=== PATIENT | female | born 1965 | race Caucasian/White ===

== ENCOUNTER 2019-11-24 16:14 | Outpatient (CLI) | payer OTHER, SELFPAY ==
--- NOTE | ~2019-11-24 | MM_ITS ---
EXAMINATION: MM screening [facility] BI w clifford HISTORY: Screening TECHNIQUE: Craniocaudal and mediolateral oblique 3-D tomosynthesis images were obtained and synthetic 2-D images were generated. CAD analysis was submitted and interpreted. COMPARISON: Comparison to multiple prior studies sequentially, with oldest reviewed study dated 06/22. BREAST PARENCHYMAL COMPOSITION: There are scattered areas of fibroglandular density. FINDINGS: There is no evidence of suspicious mass, calcification, or architectural distortion to sugg est malignancy in either breast. There has been no suspicious interval change. IMPRESSION: 1. No mammographic evidence of malignancy. 2. Recommend routine screening mammography in one year. BI-RADS Category 1: Negative Reviewed, dictated and finalized at location A.
== END 2019-11-24 16:15 | disposition home or self-care (01) ==
LOC: ANHIMG 16:19
PROVIDERS: PCP Internal Medicine; Visit Provider Internal Medicine
DX: Z12.31 Encounter for screening mammogram for malignant neoplasm of breast (principal)
CPT/HCPCS: 77063; 77067

== ENCOUNTER 2021-02-08 14:55 | Outpatient (CLI) | payer OTHER, SELFPAY ==
--- NOTE | ~2021-02-08 | MM_ITS ---
EXAMINATION: MM screening [facility] BI w clifford HISTORY: Screening mammogram TECHNIQUE: Craniocaudal and mediolateral oblique 3-D tomosynthesis images were obtained and synthetic 2-D images were generated. CAD analysis was submitted and interpreted. COMPARISON: 11/24/2019, 03/13/2018, 02/08/2017 bilateral screening mammogram examinations BREAST PARENCHYMAL COMPOSITION: There are scattered areas of fibroglandular density. FINDINGS: There are scattered bilateral benign calcifications Stable probable 4 x 7.5 mm benign intramammary lymph node in the inner aspect of the upper outer righ t breast. There is no evidence of suspicious mass, calcification, or architectural distortion to sugg est malignancy in either breast. There has been no suspicious interval change. IMPRESSION: 1. No mammographic evidence of malignancy. 2. Recommend routine screening mammography in one year. BI-RADS Category 2: Benign finding(s). Reviewed, dictated and finalized at location A. INUITY CLERK
== END 2021-02-08 14:56 | disposition home or self-care (01) ==
LOC: ANHIMG 14:58
PROVIDERS: PCP Internal Medicine; Visit Provider Internal Medicine
DX: Z12.31 Encounter for screening mammogram for malignant neoplasm of breast (principal)
CPT/HCPCS: 77063; 77067

== ENCOUNTER 2021-10-12 12:48 | Outpatient (CLI) | payer OTHER, SELFPAY ==
[2021-10-12 13:40] LABS: Albumin Level 4.5 g/dL (3.5-5.1)
[2021-10-12 13:43] LABS: Iron 87 ug/dL (37-170)
[2021-10-12 13:50] LABS: Prealbumin 28.9 mg/dL (17.6-36.0)
== END 2021-10-12 12:49 | disposition home or self-care (01) ==
PROVIDERS: PCP Internal Medicine; Visit Provider Surgery Plastic and Reconstructive Surgery
DX: Z98.84 Bariatric surgery status (principal)
CPT/HCPCS: 36415; 82040; 83540; 84134

== ENCOUNTER 2021-11-10 12:27 | Outpatient (CLI) | payer OTHER, SELFPAY ==
--- NOTE | 2021-11-10 12:43 | ECG_ITS ---
Measurements Intervals [place] Rate: 65 P: 30 KS: 157 QRS: 0 QRSD: 98 T: 14 QT: 392 QTc: 408 Interpretive Statements SINUS RHYTHM LOW QRS VOLTAGE IN PRECORDIAL LEADS [QRS DEFLECTION < 1.0 mV IN CHEST LEADS] NO PREVIOUS ECG AVAILABLE FOR COMPARISON Electronically Signed On 11-11-2021 13:21:00 CDT by Corrina Mir M.D.
[2021-11-10 13:15] LABS: Hematocrit 44.4 % (37.0-47.0); Hemoglobin 14.4 g/dL (12.0-15.0)
[2021-11-18 13:15] LABS: Vitamin B1 14 nmol/L (8-30)
== END 2021-11-10 12:28 | disposition home or self-care (01) ==
LOC: ANHSURGERY 12:33
PROVIDERS: Anesthesiology; PCP Internal Medicine; Visit Provider Surgery Plastic and Reconstructive Surgery
DX: Z01.818 Encounter for other preprocedural examination (principal); L57.4 Cutis laxa senilis; D64.9 Anemia, unspecified; Z98.84 Bariatric surgery status
CPT/HCPCS: 36415; 84425; 85014; 85018; 93005

== ENCOUNTER 2021-11-16 00:32 | Day surgery (SDC) | payer OTHER, SELFPAY ==
[2021-11-09 15:19] VITALS: BMI 30.4
--- NOTE | 2021-11-09 15:27 | PC.NURSE ---
Addendum entered by China Sinha RN 11/10/21 07:22: MAY TAKE SERTRALINE MORNING OF SURGERY WITH A SMALL SIP OF WATER. Original Note: Report to the Outpatient Waiting Room, entrance under the [facility] located off [facility], at time _0600_ on date _[id number]_. OR Time: 0730_. - You and your visitor will be asked to self-screen and do not enter if you have any COVID symptoms. - Only one visitor and NO children visitors are allowed at this time. - The patient visitor is requested to leave or wait in car when not with patient due to restrictions. - A mask is required within the hospital. Patients may have clear liquids (water, carbonated beverages, clear teas, apple juice) until 3 hours prior to surgery with a maximum of 20 ounces. - No food from midnight until time of surgery Take the following medications with a SIP of water the morning of surgery: ____None Medications to discontinue per physician Vitamin d3, Iron and THC gummies Date to take last ydfy___[id number] Please no make-up, nail nicaraguan, hairspray, perfume, deodorant, or body powder the day of surgery. No jewelry (including any body piercings) or valuables the day of surgery, leave them at home. Please take a shower or bath the night before, or the morning of, surgery with an antibacterial soap. Wear comfortable, loose fitting clothing. - Jewelry must be removed prior to entering the operating room. Rings and piercings that are not removed may be cut off. - The hospital will not accept responsibility for valuables. - Please leave all valuables, including medications, at home the day of surgery. If you are going home after surgery, a licensed vending route driver must drive you home. - NO public transportation without another adult. - We recommend that an adult stay with you for 24 hours following discharge. - We also recommend that you do not drive, make important decision, drink alcoholic beverages, or take any drugs that were not prescribed by your health care provider for at least 24 hours after your discharge time. Follow any additional instructions given to you from your surgeon. If you or anyone in your household have experienced Covid symptoms in the past week, please notify your surgeon or the nurse liaison at the phone number below for possible testing. Telephone instructions given to _Patient__and asked if any additional questions and then verbalized understanding. Patient advised to call surgeon office or pre surgery nurse liaison [phone] if any additional questions.
--- NOTE | 2021-11-15 12:56 | WPDANESEPPF ---
Anes - Initial Pre Proc Eval Procedure: Operation Date: 11/16/21 07:30 Proposed Procedures p Bilateral Breast Mastopexy with GalaFlex, - Jason Bah MD s Abdominoplasty with Abdominal Liposuction - Jason Bah MD Date/Time: 11/15/21 12:56 Surgeon: Jason Bah MD Pre Op Diagnosis: skin laxity, breast ptosis Patient Data Age: 56 Gender: F Height: 1.68 m Weight: 85.5 kg Allergies Allergy/AdvReac Type Severity Reaction Status Date / Time nut - unspecified Allergy Severe PASSED Verified 11/16/21 06:41 OUT, AMBULANCE TO HOSP SWELLING, HIVES Penicillins Allergy Unknown Unknown Verified 11/16/21 06:41 Home Medications Medication Instructions Recorded Confirmed Type epinephrine 0.3 mg/0.3 mL 0.3 mg (0.3 mL) IM ONCE #1 ea 01/05/20 11/09/21 Rx injection, auto-injector (EpiPen 2-Tucker) ferrous sulfate 325 mg (65 mg 325 mg PO DAILY 01/05/20 11/16/21 History iron) tablet sertraline 100 mg tablet See Rx Instructions .Route 10/30/21 11/09/21 Rx .COMPLEX #90 tabs sertraline 25 mg tablet See Rx Instructions .Route 10/30/21 11/09/21 Rx .COMPLEX #90 tabs ondansetron 4 mg disintegrating 4 mg PO Q8H #21 tabs 11/03/21 Rx tablet carisoprodol 350 mg tablet (Soma) 350 mg PO TID PRN muscle pain #21 11/06/21 11/06/21 Rx tabs diazepam 5 mg tablet (Valium) 5 mg PO TID PRN anxiety #7 tabs 11/06/21 11/06/21 Rx oxycodone-acetaminophen 5 mg-325 1 tablet PO Q6H PRN pain #30 tabs 11/06/21 11/06/21 Rx mg tablet (Percocet) cholecalciferol (vitamin D3) 25 25 mcg PO DAILY 11/09/21 11/16/21 History mcg (1,000 unit) capsule (Vitamin D3) Patient hx anesthesia problems: none and other (slow to awake) Family hx anesthesia problems: none Results Review: All pre-operative results and documents have been reviewed as part of the pre-operative evaluation. [facility] Past Medical History Medical History Acne Anemia Chronic fatigue Depression Hypertriglyceridemia Surgical History Surgical History Delivery by section H/O gastric bypass History of cholecystectomy History of partial hysterectomy Family History Family History Father Diabetes mellitus Lymphoma Mother Acute myeloid leukemia Social History Social History Smoking status: Never smoker Alcohol intake: current Drinks per week: 6 Alcohol use details: once weekly Substance use: current Substance use type: does not use Other substance usage details: THC gummies to help sleep. Living arrangements: with family Spiritual care concerns: No Anes - Eval Final PreProcedure Day of Procedure 11/15/21 12:56 Patient weight: normal Heart: regular rate and rhythm Lungs: clear to auscultation Airway: Mallampati scale class II Neurological: alert and oriented Last oral intake: >/= 8 hours ASA classification: II Emergent: no Anesthetic plan: proceed Anesthesia type and monitoring: general ETT and standard monitoring Results Review: All pre-operative results and documents have been reviewed as part of the pre-operative evaluation. Informed Consent: The patient's anesthetic plan and its attendant risks and benefits were discussed with the patient/family/POA. Questions were solicited and answers provided to the satisfaction of the patient/family/POA.
[2021-11-16] VITALS (10 sets, daily range): BP systolic 99–149; BP diastolic 51–85; PULSE 59–96; RESP 12–20; TEMP 36.4–37.1; O2SAT 93–100; BMI 28.8
--- NOTE | 2021-11-16 06:28 | W.PM.PROC2 ---
Procedure Note - Detailed Date of Procedure 11/16/21 Pre-op Diagnosis skin laxity, breast ptosis Post-op Diagnosis Same Procedure Performed 1. Bilateral mastopexy with Galaflex. 2. Progressive tension abdominoplasty with suction lipectomy Surgeon Jason Bah MD Anesthesia General Findings Breast Inverted T Superior medial pedicle Galaflex REF# [id number] Lot [id number] Exp 04/24/2024 Abdomen Tissue removed 2062 grams Lipoaspirate 3,000 cc Description of Procedure She is here today for the above. Previously and again today the risks, benefits, alternatives were discussed in extensive detail. I wanted them to be very realistic about the risks involved as well as expectations. We discussed aftercare and what to monitor for. I was very upfront about the risks of wound breakdown leading to loss of skin, open wounds, and need for additional procedures with permanent abdominal deformity. We discussed DVT/PE risks and management. Made sure answered all of their questions to their satisfaction today and consent was obtained. Marked in the preoperative holding area with their verification. The patient was taken to the operating room placed supine on the operating table. Anesthesia was provided by anesthesiology. A Sierra catheter was started. Prepped and draped in a 360 degree standard sterile fashion. Breast A surgical time-out was taken. Stab incision was made and small volume of tumescent was utilized. I tailor tacked the breast into position. Placed her in a sitting position. Verified the nipple-areolar location based on preoperative planning as well as intraoperative observations and measurements in full agreement. This was marked at 42mm in size She was placed supine. I marked the NAC at 42 mm and de-epithelialized the pedicle. The inferior breast was de-epithelized to create an auto augmentation flap which was sutured into place with 2-0 PDS. Galaflex was placed and trimmed after soaking in betadine solution. Sutured into place with 2-0 Vicryl. I closed along the IMF with 2-0 Stratafix. Along the vertical with 2-0 PDS. I closed around the areola with 3-0 strata fix. 3-0 Monocryl along the vertical. 3-0 Stratafix along the IMF. I finally closed everything with running subcuticular 4-0 Monocryl and tissue glue. Abdomen I placed the patient in a flexed position to verify the upper and lower markings would reach. I then placed supine. A thorough abdominal examination was completed. Stab incisions were made and tumescent solution infiltrated. A 5mm liposuction basket cannula was utilized to provide suction lipectomy based on S.A.F.E. technique. This was in multiple planes and passes. Patient was turned into the lateral decubitus position with care taken to protect from injury during these turns in order to optimize contour. She was returned to supine. A 10 blade was used to make the upper incision. I continued dissection down to the level of fascia. Elevated just what was necessary for repair of the diastasis. I then again flexed the bed to verify the upper skin flap would reach the lower markings without tension. Once verified I placed her supine once again and a 10 blade used to make the lower incision. I elevated up to level the umbilicus and left the umbilicus intact on a well-vascularized stalk. The intervening tissue was removed. A 2 mm blunt cannula with 0.5% bupivicaine was injected deep to the fascia bilaterally. I plicated the diastasis recti using 0 PDO stratafix barbed suture. This was in 2 separate layers using 2 separate sutures as well. I repaired around the umbilicus leaving plenty of room for well-vascularized stalk of the umbilicus with 2-0 PDS. I also repaired lateral to the rectus using two layers of 0 PDO stratafix. The patient was flexed and starting from superior to inferior began plication using 2-0 Vicryl to obliterate all space in a standard progressive tension fashion. At the
[2021-11-16 06:47] LABS: Urine Cotinine NEGATIVE
[2021-11-16] MEDS: LACTATED RINGERS 1,000 ML 30 ML IV CONT ×2 (06:50→14:02)
--- NOTE | 2021-11-16 07:22 | WPDHPUPDATE1 ---
History and Physical Update Update Date/Time: 11/16/21 07:22 History and Physical has been reviewed, including an updated exam of the patient. There are NO changes in the patient's condition. Risks, benefits, and alternatives have been discussed and questions answered. Patient agrees to proceed with procedure.
[2021-11-16] MEDS: TRANEXAMIC ACID 1,000MG/ISO100 1,000 MG/100 ML BAG 200 MG IVPB (07:32)
[2021-11-16] MEDS: ceFAZolin 2 GM/D5W 50 ML 2 GM/50 ML BAG IVPB (07:32)
[2021-11-16] MEDS: BUPIVACAINE HCL 0.25% PF 30 ML VIAL INFILTRATE (08:34)
[2021-11-16] MEDS: NACL 0.9% IRRIG POUR BOTTLE 900 ML, GENTAMICIN SULFATE INJ 160 MG, CLINDAMYCIN PHOS INJ... IRRIGATION (08:35)
[2021-11-16] MEDS: LACTATED RINGERS IRRIG 1,000 ML, LIDOCAINE HCL 1% LOCAL INJ 50 ML, EPINEPHrine HCL INJ ... INFILTRATE ×4 (08:39→11:19)
[2021-11-16] MEDS: fentaNYL CITRATE INJ (*CRX) 100 MCG/2 ML VIAL 25 MCG IV PUSH ×2 (14:45→15:01)
[2021-11-16] MEDS: ONDANSETRON INJ 4 MG/2 ML VIAL IV PUSH (15:44)
[2021-11-16] MEDS: LACTATED RINGERS 1,000 ML 125 ML IV CONT (15:44)
[2021-11-16] MEDS: MORPHINE SULFATE (*CRX) 2 MG/ML INJ IV PUSH (15:45)
[2021-11-16] MEDS: carisoprodoL (*CRX) 350 MG TABLET PO ×2 (16:45→22:46)
[2021-11-16] MEDS: oxyCODONE/ACETAMINOPHEN (*CRX) 5-325 MG TABLET PO ×2 (17:44→23:29)
[2021-11-16] MEDS: ENOXAPARIN 40 MG/0.4 ML SYRINGE SUB-Q (20:17)
[2021-11-17] MEDS: oxyCODONE/ACETAMINOPHEN (*CRX) 5-325 MG TABLET PO (05:19)
[2021-11-17] MEDS: carisoprodoL (*CRX) 350 MG TABLET PO ×3 (05:19→17:19)
--- NOTE | 2021-11-17 07:24 | WPDPN ---
Progress Note: A&P Assessment and Plan (1) Breast ptosis: Code(s): N64.81 - Ptosis of breast Status: Acute Assessment and Plan: She is doing very well after bilateral mastopexy with galaflex, progressive tension abdominoplasty and suction lipectomy. Will discharge home. Today we had a lengthy discussion about the care. What monitor for. Activity limitations. This was a lengthy open-ended conversation making sure to sure we answered all her questions. We will plan to discharge home when she is ambulating, pain controlled, tolerating diet. Call with any questions or concerns. (2) Skin laxity: Code(s): L57.4 - Cutis laxa senilis Status: Acute (3) History of weight loss surgery: Code(s): Z98.84 - Bariatric surgery status Status: Acute (4) Exposure to phentermine: Code(s): T50.5X5A - Adverse effect of appetite depressants, initial encounter Status: Acute Assessment and Plan: No phentermine use. Subjective Date/time seen: 11/17/21 07:24 Interval history: She has done well overnight. Pain moderate control. No fevers or chills. No nausea vomiting. No shortness of breath. No chest pain. No calf tenderness. She says she was doing better with 1 pain pill every 3 hours and would like to switch to the. Review of Systems Review of Systems: All systems reviewed & are unremarkable except as noted in HPI and below Exam Narrative: Alert and oriented no obvious distress Respiratory on labored Bilateral breasts are soft. No signs of infection. No hematoma. No seroma. Good color and capillary refill. Abdomen is healing well. No signs of infection. No hematoma. No seroma. Good color and capillary refill. No calf tenderness. Negative Homans. Objective Data Vital Signs Vital Signs: Vital Signs - 24 hr 11/16/21 14:02 11/16/21 14:15 11/16/21 14:30 Temperature 36.6 C Pulse Rate 96 96 88 Respiratory Rate 18 16 18 Blood Pressure 149/80 H 146/84 H 127/74 Pulse Oximetry 100 100 100 Oxygen Delivery Simple Face Mask Simple Face Mask Simple Face Mask Oxygen Flow Rate 6 6 6 11/16/21 14:37 11/16/21 14:45 11/16/21 15:00 Temperature Pulse Rate 96 85 Respiratory Rate 16 12 Blood Pressure 129/76 136/79 Pulse Oximetry 93 95 Oxygen Delivery Room Air Room Air Room Air Oxygen Flow Rate 11/16/21 15:15 11/16/21 15:20 11/16/21 15:20 Temperature 36.6 C Pulse Rate 94 74 74 Respiratory Rate 12 16 16 Blood Pressure 132/79 130/85 Pulse Oximetry 98 97 97 Oxygen Delivery Room Air Room Air Oxygen Flow Rate 11/16/21 20:30 11/16/21 20:30 11/16/21 23:46 Temperature 36.4 C 37.0 C Pulse Rate 78 78 60 Respiratory Rate 18 18 20 Blood Pressure 106/57 L 99/51 L Pulse Oximetry 100 100 99 Oxygen Delivery Room Air Oxygen Flow Rate 11/16/21 23:30 Temperature Pulse Rate Respiratory Rate Blood Pressure Pulse Oximetry Oxygen Delivery Room Air Oxygen Flow Rate Intake/Output Intake/Output: Intake & Output 11/14/21 11/15/21 11/16/21 11/17/21 23:59 23:59 23:59 23:59 Intake Total 550 Output Total 800 Balance -250 Meds/Results Medications: Active Medications Generic Name Dose Route Start Last Admin Trade Name Freq PRN Reason Stop Dose Admin Carisoprodol 350 mg 11/16/21 18:00 11/17/21 05:19 Carisoprodol (*Crx) 350 Mg Tablet PO 350 mg Q6HR ROZINA Administration Diazepam 5 mg 11/16/21 13:39 Diazepam (*Crx) 5 Mg Tablet PO TID PRN Anxiety Enoxaparin Sodium 40 mg 11/16/21 20:00 11/16/21 20:17 Enoxaparin 40 Mg/0.4 Ml Syringe SUB-Q 40 mg DAILY@2000 ROZINA Administration Lactated Ringer's 1,000 mls @ 125 mls/hr 11/16/21 13:40 11/16/21 22:05 Lr - Lactated Ringers Iv IV CONT 0 mls/hr .Q8H ROZINA Infusion Morphine Sulfate 2 mg 11/16/21 13:39 11/16/21 15:45 Morphine Sulfate (*Crx) 2 Mg/Ml Inj IV PUSH 2 mg Q2H PRN Administration Pain Ond
--- NOTE | 2021-11-17 07:31 | PM.DS ---
DS: Admitting Diagnosis Discharge Date 11/17/2021 Admitting Diagnosis Skin laxity, breast ptosis DS: Discharge Diagnosis Discharge Diagnosis (1) Skin laxity: Code(s): L57.4 - Cutis laxa senilis Status: Acute (2) Breast ptosis: Code(s): N64.81 - Ptosis of breast Status: Acute (3) History of weight loss surgery: Code(s): Z98.84 - Bariatric surgery status Status: Acute (4) Exposure to phentermine: Code(s): T50.5X5A - Adverse effect of appetite depressants, initial encounter Status: Acute DS: Summary Hospital Course Hospital Course: She underwent bilateral mastopexy with GalaFLEX, progressive tension abdominoplasty with suction lipectomy. Postoperatively has done well. Will plan for discharge home. Time Spent with Patient Time attestation: Total time spent providing and/or coordinating discharge services: Exam Narrative: Alert and oriented no obvious distress Respiratory on labored Bilateral breasts are soft. No signs of infection. No hematoma. No seroma. Good color and capillary refill. Abdomen is healing well. No signs of infection. No hematoma. No seroma. Good color and capillary refill. No calf tenderness. Negative Homans. Discharge Plan Discharge Patient Disposition: Home, Self-Care Discharge Instructions: POST OPERATIVE DISCHARGE INSTRUCTIONS JASON BAH M.D. [facility] [address] [place] [address] [address] for 24 hours after anesthesia and while you are taking pain medication. Take all prescribed medication as directed Diet as tolerated. No lifting or activity that raises blood pressure for 48 hours. Regular walking / ambulation. May shower 24 hours after surgery. Once you shower do not take pain medication before showering as the combination of medication and heat may cause you to feel dizzy or pass out. No pools or tubs for 2 weeks. Slowly stand up straight as tolerated. No straining or lifting more than 20 pounds. Call with any questions or concerns. Dressing Care: Continue abdominal binder / foam 23 hours per day. If you have any questions or concerns, please call the office . If it is after hours you will be directed to the clearing distribution clerk exchange. Shortness of breath, chest pain, or other medical emergency dial 911 / proceed to the Emergency Room. Follow-up/Referrals: Jason Bah MD [Physician] - 1 Week Discharge Medications: Continued ondansetron 4 mg tablet,disintegrating 4 mg PO Q8H Qty: 21 0RF oxycodone-acetaminophen [Percocet] 5-325 mg tablet 1 tablet PO Q6H PRN (Reason: pain) Qty: 30 0RF diazepam [Valium] 5 mg tablet 5 mg PO TID PRN (Reason: anxiety) Qty: 7 0RF carisoprodol [Soma] 350 mg tablet 350 mg PO TID PRN (Reason: muscle pain) Qty: 21 0RF ferrous sulfate 325 mg (65 mg iron) tablet 325 mg PO DAILY epinephrine [EpiPen 2-Tucker] 0.3 mg/0.3 mL auto-injector 0.3 mg IM ONCE Qty: 1 2RF Rx Instructions: as a single dose; may repeat once cholecalciferol (vitamin D3) [Vitamin D3] 25 mcg (1,000 unit) Capsule 25 mcg PO DAILY sertraline 100 mg tablet See Rx Instructions .ROUTE .COMPLEX Qty: 90 0RF Dose Instruction: TAKE 1 TABLET BY MOUTH DAILY Rx Instructions: TAKE 1 TABLET BY MOUTH DAILY sertraline 25 mg tablet See Rx Instructions .ROUTE .COMPLEX Qty: 90 0RF Dose Instruction: TAKE 1 TABLET BY MOUTH DAILY Rx Instructions: TAKE 1 TABLET BY MOUTH DAILY enoxaparin [Lovenox] 40 mg/0.4 mL syringe 40 mg subcut DAILY Qty: 4 0RF
--- NOTE | 2021-11-17 08:04 | WPDANESPN ---
Anes - Prog Note Post-Op Date/Time: 11/17/21 08:04 Cardiovascular status: normal Respiratory status: normal Airway patency: baseline Mental status: baseline Post-Op hydration status: normal Vital Signs: Last Vital Signs Temp 37.0 C 11/16/21 23:46 Pulse 60 11/16/21 23:46 Resp 20 11/16/21 23:46 BP 99/51 L 11/16/21 23:46 Pulse Ox 99 11/16/21 23:46 O2 Del Method Room Air 11/16/21 23:30 O2 Flow Rate 6 11/16/21 14:30 Pain Score (VAS): 3/10 I/O: Intake & Output 11/16/21 11/17/21 11/17/21 23:59 07:59 15:59 Intake Total 500 Output Total 600 Balance -100 Post-procedural complaints: none Patient Feedback: Patient satisfied with anesthetic care. Other Findings: Burning Pain across abdomen
[2021-11-17] MEDS: oxyCODONE/ACETAMINOPHEN (*CRX) 5-325 MG TABLET 1 TABLET PO ×4 (08:11→17:19)
[2021-11-17 08:35] VITALS: BP 89/47; PULSE 64; RESP 16; TEMP 37; O2SAT 99
== END 2021-11-17 18:35 | disposition home or self-care (01) ==
LOC: ANHSURGERY 06:12 → ANHOB2 15:04
PROVIDERS: PCP Internal Medicine; Visit Provider Surgery Plastic and Reconstructive Surgery
PROC: (CPT 19316; principal; 2021-11-16 07:30)
PROC: (CPT 19316; 2021-11-16 07:30)
DX: N64.81 Ptosis of breast (principal); L57.4 Cutis laxa senilis; Z98.84 Bariatric surgery status; T50.5X5A Adverse effect of appetite depressants, initial encounter; R53.82 Chronic fatigue, unspecified; E78.1 Pure hyperglyceridemia; D64.9 Anemia, unspecified
CPT/HCPCS: 19316; 15877; 15847; 80307; 99199; A9270; J0131; J0171; J0330; J0690; J1100; J1170; J1580; J1650; J2250; J2270; J2405; J2704; J2710; J3010; J7120

== ENCOUNTER 2023-04-24 15:16 | Outpatient (CLI) | payer OTHER, SELFPAY ==
--- NOTE | ~2023-04-24 | MM_ITS ---
EXAMINATION: MM screening [facility] BI w clifford HISTORY: Screening TECHNIQUE: Craniocaudal and mediolateral oblique 3-D tomosynthesis images were obtained and synthetic 2-D images were generated. CAD analysis was submitted and interpreted. COMPARISON: Comparison to multiple prior studies sequentially, with oldest reviewed study dated 07/09. BREAST PARENCHYMAL COMPOSITION: Not dense: There are scattered areas of fibroglandular density. FINDINGS: There is no evidence of suspicious mass, calcification, or architectural distortion to sugg est malignancy in either breast. There has been no suspicious interval change. IMPRESSION: 1. No mammographic evidence of malignancy. 2. Recommend routine screening mammography in one year. BI-RADS Category 1: Negative Reviewed, dictated and finalized at location A. COATER
== END 2023-04-24 15:17 | disposition home or self-care (01) ==
LOC: ANHIMG 15:20
PROVIDERS: PCP Internal Medicine; Visit Provider Internal Medicine
DX: Z12.31 Encounter for screening mammogram for malignant neoplasm of breast (principal)
CPT/HCPCS: 77063; 77067

== ENCOUNTER 2023-11-05 01:51 | Day surgery (SDC) | payer OTHER, SELFPAY ==
[2023-10-16 11:26] VITALS: BMI 29.2
[2023-11-05 07:30] VITALS: BP 134/87; PULSE 62; RESP 16; TEMP 36.1; O2SAT 99; BMI 29.9
--- NOTE | 2023-11-05 07:34 | WPDANESEPPF ---
Anes - Initial Pre Proc Eval Procedure: Operation Date: 11/05/23 08:30 Proposed Procedures p Colonoscopy - Iván Whaley MD Date/Time: 11/05/23 07:34 Surgeon: Iván Whaley MD Pre Op Diagnosis: Personal history colon polyps Patient Data Age: 58 Gender: F Height: 1.68 m Weight: 82 kg Allergies Allergy/AdvReac Type Severity Reaction Status Date / Time nut - unspecified Allergy Severe PASSED Verified 11/05/23 07:28 OUT, AMBULANCE TO HOSP SWELLING, HIVES Penicillins Allergy Unknown Unknown Verified 11/05/23 07:28 Home Medications Medication Instructions Recorded Confirmed Type ferrous sulfate 325 mg (65 mg 325 mg PO DAILY 01/05/20 11/05/23 History iron) tablet mecobalamin (vitamin B12) 1 tablet PO DAILY 03/11/23 11/05/23 History epinephrine 0.3 mg/0.3 mL 0.3 mg (0.3 mL) IM ONCE #1 ea 03/27/23 11/05/23 Rx injection, auto-injector (EpiPen 2-Tucker) sertraline 100 mg tablet See Rx Instructions .Route 06/04/23 11/05/23 Rx .COMPLEX #90 tabs Patient hx anesthesia problems: none Family hx anesthesia problems: none Results Review: All pre-operative results and documents have been reviewed as part of the pre-operative evaluation. [facility] Past Medical History Medical History Acne Anemia Chronic fatigue Depression Hypertriglyceridemia Surgical History Surgical History Delivery by section H/O gastric bypass History of cholecystectomy History of partial hysterectomy Family History Family History Father Diabetes mellitus Lymphoma Mother Acute myeloid leukemia Social History Social History Smoking status: Never smoker Alcohol intake: current Drinks per week: 6 Alcohol use details: Socially Substance use: current Substance use type: does not use Other substance usage details: THC gummies to help sleep. Lack of Transportation: No Lack of Food: Never True Current Housing: I Have Housing Concerned About Future Housing: No Difficulty Paying Gas/Electric Bills: No Difficulty Paying for Meds: No Currently Unemployed: No Education: High School Diploma/GED Difficulty w/ Childcare or Family Care: No Living arrangements: other Spiritual care concerns: No Anes - Eval Final PreProcedure Day of Procedure 11/05/23 07:34 Patient weight: overweight Heart: regular rate and rhythm Lungs: clear to auscultation Airway: Mallampati scale class II Neurological: alert and oriented Last oral intake: >/= 8 hours ASA classification: II Emergent: no Anesthetic plan: proceed Anesthesia type and monitoring: general GIVS and standard monitoring Results Review: All pre-operative results and documents have been reviewed as part of the pre-operative evaluation. Hx of polyps in the past. Pt recently travelled in [facility], lots of walking, no cp or sob. Informed Consent: The patient's anesthetic plan and its attendant risks and benefits were discussed with the patient/family/POA. Questions were solicited and answers provided to the satisfaction of the patient/family/POA.
[2023-11-05] MEDS: LACTATED RINGERS 1,000 ML 150 ML IV CONT (07:47)
--- NOTE | 2023-11-05 08:39 | PM.HPGS ---
History of Present Illness History of Present Illness Consent: Risks, benefits, and alternatives have been discussed and questions answered. Patient agrees to proceed with procedure. Chief complaint: Personal history colon polyps Narrative: Katarina Hdz is a 58 year old female with colon polyp in 2019 Review of Systems Review of Systems: All systems reviewed & are unremarkable except as noted in HPI and below PMFSH Past Medical History Medical History Acne Anemia Chronic fatigue Depression Hypertriglyceridemia Surgical History Surgical History Delivery by section H/O gastric bypass History of cholecystectomy History of partial hysterectomy Family History Family History Father Diabetes mellitus Lymphoma Mother Acute myeloid leukemia Social History Social History Smoking status: Never smoker Alcohol intake: current Drinks per week: 6 Alcohol use details: Socially Substance use: current Substance use type: does not use Other substance usage details: THC gummies to help sleep. Lack of Transportation: No Lack of Food: Never True Current Housing: I Have Housing Concerned About Future Housing: No Difficulty Paying Gas/Electric Bills: No Difficulty Paying for Meds: No Currently Unemployed: No Education: High School Diploma/GED Difficulty w/ Childcare or Family Care: No Living arrangements: other Spiritual care concerns: No Meds Home Medications and Allergies Home Medications Medication Instructions Recorded Confirmed Type ferrous sulfate 325 mg (65 mg 325 mg PO DAILY 01/05/20 11/05/23 History iron) tablet mecobalamin (vitamin B12) 1 tablet PO DAILY 03/11/23 11/05/23 History epinephrine 0.3 mg/0.3 mL 0.3 mg (0.3 mL) IM ONCE #1 ea 03/27/23 11/05/23 Rx injection, auto-injector (EpiPen 2-Tucker) sertraline 100 mg tablet See Rx Instructions .Route 06/04/23 11/05/23 Rx .COMPLEX #90 tabs Allergies Allergy/AdvReac Type Severity Reaction Status Date / Time nut - unspecified Allergy Severe PASSED Verified 11/05/23 07:28 OUT, AMBULANCE TO HOSP SWELLING, HIVES Penicillins Allergy Unknown Unknown Verified 11/05/23 07:28 Vital Signs Vital Signs - 24 hr 11/05/23 07:30 Temperature 96.9 F L Pulse Rate 62 Respiratory Rate 16 Blood Pressure 134/87 Pulse Oximetry 99 Oxygen Delivery Room Air Exam Const: General: comfortable and no acute distress HENMT: Face/Nose/Sinus: Normal nares present Eyes: General: appearance normal, both eyes and all related structures Neck: Neck: no JVD Resp: Auscultation: clear to auscultation bilaterally Cardio: Rate: regular rate Rhythm: regular rhythm GI: Inspection: non-distended GI Palp: Yes Soft to palpation Skin: General skin exam: normal color Neuro: General: gait normal Speech: normal speech Extrem: General: normal to inspection Psych: Mental Status: mental status grossly normal Assessment and Plan Assessment and plan (1) Personal history of colonic polyps: Code(s): Z86.010 - Personal history of colonic polyps Status: Acute Assessment and Plan: colonoscopy
[2023-11-05 09:02] VITALS: BP 99/40; PULSE 65; RESP 20; O2SAT 99
[2023-11-05 09:12] VITALS: BP 96/54; PULSE 57; RESP 17; O2SAT 99
[2023-11-05 09:21] VITALS: BP 100/60; PULSE 54; RESP 22; O2SAT 99
== END 2023-11-05 09:30 | disposition home or self-care (01) ==
PROVIDERS: PCP Internal Medicine; Referring Provider Nurse Practitioner; Visit Provider Internal Medicine Gastroenterology
PROC: 0DJD8ZZ Inspection of Lower Intestinal Tract, Via Natural or Artificial Opening Endoscopic (ICD-10-PCS; CPT 45378; principal; 2023-11-05 08:30)
DX: Z12.11 Encounter for screening for malignant neoplasm of colon (principal); D12.5 Benign neoplasm of sigmoid colon; K57.30 Diverticulosis of large intestine without perforation or abscess without bleeding; K64.8 Other hemorrhoids; D64.9 Anemia, unspecified; E78.1 Pure hyperglyceridemia; F32.A Depression, unspecified; Z98.84 Bariatric surgery status
CPT/HCPCS: 45385; 88305; J1596; J2704; J7120